=== PATIENT | female | born 1985 | race Caucasian/White ===

== ENCOUNTER 2020-12-23 01:49 | Outpatient (CLI) | payer OTHER, SELFPAY ==
--- NOTE | 2020-12-23 07:00 | DI.MRI_ITS ---
Exam(s) MR LUMBAR SPINE WO EXAM: MR LUMBAR SPINE WO CLINICAL HISTORY: lumbar radicular pain L3 distribution. Injury, M54.16. TECHNIQUE: Multiplanar multisequence MRI of the Lumbar spine was performed. COMPARISON: No exams were available for comparison FINDINGS: Bones: The last intervertebral disc space is designated the L5/S1 level for the numbering purpose of this examination. The vertebral body heights are well maintained. Alignment is satisfactory. The si gnal characteristics are unremarkable. Cord: The conus tip ends at the L1 level. It is of normal size and signal intensity. T12-L1: No disc herniations or bulges are present. No central spinal canal or neural foraminal stenos is. L1-2: No disc herniations or bulges are present. No central spinal canal or neural foraminal stenosis . L2-3: No disc herniations or bulges are present. No central spinal canal or neural foraminal stenosis . L3-4: No disc herniations or bulges are present. No central spinal canal or neural foraminal stenosis . L4-5: There is degenerative disc disease. There is mild left sided herniation of the disc which caus es moderate left neural foraminal stenosis. No significant central spinal canal or right neural fora julito stenosis is present. L5-S1: There is degenerative disc disease. There is a small central disc herniation. No central spi nal canal or neural foraminal stenosis. Soft tissues: The visualized SI joints and sacrum are well maintained. The paraspinal soft tissues ar e unremarkable. IMPRESSION: 1. Small left-sided herniation of the disc at L4-5 causing moderate left neural foraminal stenosis. 2. Small central disc herniation at L5-S1. No significant central spinal canal or neural foraminal s tenosis results. 3. Degenerative disc disease at L4-5 and L5-S1. DATA REPOSITORY:
== END 2020-12-23 02:09 ==
PROVIDERS: PCP Nurse Practitioner Family; Visit Provider Physician Assistant
DX: M54.16 Radiculopathy, lumbar region (principal); M54.5 Low back pain; M51.17 Intervertebral disc disorders with radiculopathy, lumbosacral region
CPT/HCPCS: 72148

== ENCOUNTER 2021-02-03 03:26 | Outpatient (CLI) | payer OTHER, SELFPAY ==
[2021-02-03 09:33] LABS: Hemoglobin A1C 5.6 % (<5.7)
[2021-02-03 10:52] LABS: Anion Gap 11.2 mmol/L (3-11); BUN 15 mg/dL (7-18); CO2 25.8 mmol/L (21.0-32.0); CREATININE 0.9 mg/dL (0.55-1.02); Calcium 9.5 mg/dL (8.5-10.1); Calculated LDL 127 mg/dL (<100); Chloride 103 mmol/L (98-107); Cholesterol 210 mg/dL (<200); Glucose 92 mg/dL (74-106); HDL Cholesterol 64 mg/dL (40-60); Potassium 4.2 mmol/L (3.5-5.1); Sodium 140 mmol/L (136-145); TSH (W/Ref FT4) 1.38 uIU/mL (0.36-3.74); Triglyceride 99 mg/dL (<150)
== END 2021-02-03 03:27 | disposition home or self-care (01) ==
LOC: LBO 03:26
PROVIDERS: PCP Nurse Practitioner Family; Visit Provider Nurse Practitioner Family
DX: Z00.00 Encounter for general adult medical examination without abnormal findings (principal); E78.5 Hyperlipidemia, unspecified; Z13.1 Encounter for screening for diabetes mellitus; Z13.29 Encounter for screening for other suspected endocrine disorder
CPT/HCPCS: 36415; 80048; 80061; 83036; 84443

== ENCOUNTER 2021-02-03 09:14 | Outpatient (REF) | payer OTHER, SELFPAY ==
--- NOTE | 2021-02-03 09:00 | PAPFT_PTH ---
PATIENT: Charu Brunson LOC: [facility] U#:[id number] AGE/SX: 35/F ROOM: RE02/03/[address]: Shelbie Ordaz MD : 1985 BED: DIS: 02/03/2021 SPEC #: [id number] RECD: 02/03/21 12:50 STATUS: NICOLASA CULLEN #: [id number] MONICA: 02/03/21 09:[address]: Shelbie Ordaz DEPT: [facility] Cytology RECD BY: Heavenly Peters ENTERED: 02/03/21 12:50 SP TYPE: PAPFT TASIA DR: Zeenat Araiza, SOPHIA Tissues: 1 - CX/ENDOCX FOR PAP SMEARS Procedures: PAP THIN PREP/[facility] Screening HPV DNA PROBE Comments: [id number]
== END 2021-02-03 09:15 | disposition home or self-care (01) ==
LOC: LBN 09:14
PROVIDERS: PCP Nurse Practitioner Family; Visit Provider Obstetrics & Gynecology
DX: Z12.4 Encounter for screening for malignant neoplasm of cervix (principal); R87.610 Atypical squamous cells of undetermined significance on cytologic smear of cervix (ASC-US)
CPT/HCPCS: 88142; 87624

== ENCOUNTER 2021-03-17 08:55 | Outpatient (REF) | payer OTHER, SELFPAY ==
--- NOTE | 2021-03-17 | ENDO_PTH ---
PATIENT: Charu Brunson LOC: [facility] U#:[id number] AGE/SX: 35/F ROOM: RE03/17/[address]: Keren Martins DO : 1985 BED: DIS: 03/17/2021 SPEC #: [id number] RECD: 03/17/21 10:52 STATUS: NICOLASA REQ #: [id number] MONICA: 03/17/21 00:[address]: Keren Martins DEPT: Surgical Specimen RECD BY: Garima Miles ENTERED: 03/17/21 10:56 SP TYPE: Endo OTHR DR: SOPHIA Diallo Tissues: 1 - ENDOCERVICAL BX/CURRETTE Procedures: GROSS AND MICRO LEVEL 4 Comments: [id number]
== END 2021-03-17 08:56 | disposition home or self-care (01) ==
LOC: LBN 08:55
PROVIDERS: PCP Nurse Practitioner Family; Visit Provider Obstetrics & Gynecology
DX: R87.610 Atypical squamous cells of undetermined significance on cytologic smear of cervix (ASC-US) (principal); R87.810 Cervical high risk human papillomavirus (HPV) DNA test positive; N88.8 Other specified noninflammatory disorders of cervix uteri
CPT/HCPCS: 88305

== ENCOUNTER 2021-04-17 18:10 | Outpatient (REF) | payer OTHER, SELFPAY | END 2021-04-17 18:11 | disposition home or self-care (01) | LOC: LBN 18:10 | PROVIDERS: PCP Nurse Practitioner Family; Visit Provider Nurse Practitioner Family | DX: J02.9 Acute pharyngitis, unspecified (principal) | CPT/HCPCS: 87070 ==

== ENCOUNTER 2021-08-25 15:38 | Outpatient (CLI) | payer OTHER, SELFPAY ==
--- NOTE | 2021-08-25 08:15 | DI.RAD_ITS ---
Exam(s) XR TOE RT GREAT EXAM: XR TOE RT GREAT CLINICAL HISTORY: hyperextenion injury 4 months ago, pain at MP joint, rt toe pain, M79.674. TECHNIQUE: 2D digital imaging was performed. COMPARISON: No exams were available for comparison FINDINGS: BONES: No acute fracture is present. No bony destructive lesion is seen. JOINTS: No dislocation present. SOFT TISSUE: Normal. IMPRESSION: No evidence of acute fracture, dislocation, or subluxation. DATA REPOSITORY: RADIATION DOSE DELIVERED:
== END 2021-08-25 15:58 ==
PROVIDERS: PCP Nurse Practitioner Family; Visit Provider Family Medicine
DX: M79.674 Pain in right toe(s) (principal); G89.21 Chronic pain due to trauma
CPT/HCPCS: 73660